=== PATIENT | male | born 1970 | race Two or more races ===

== ENCOUNTER 2016-10-30 19:42 | Inpatient (IN) | payer SELFPAY ==
[~2016-10-30] VITALS: Ht 165.1 cm; Wt 77.1 kg
[2016-10-30] MEDS ORDERED: levOFLOXacin PER PHARMACY. MC PRN (20:30)
[2016-10-30] MEDS ORDERED: KETOROLAC TROMETHAMINE 30 MG/ML INJ. IV ONE (20:30)
[2016-10-30] MEDS ORDERED: IV NORMAL SALINE 1000ML BAG 1,000 ML IV ONE (20:30)
[2016-10-30] MEDS ORDERED: fentaNYL PF VIAL 100 MCG/2 ML VIAL IV PRN (20:30)
--- NOTE | 2016-10-30 20:40 | PHYS DOC ---
Adult General Chief Complaint Chief Complaint: ABSCESS HPI HPI Patient is a 46 year old male who presents with buttock pain. The patient reports 4 day history of pain, swelling, warmth to left buttock, associated with pain with bowel movement. Reports sweats/chills, 1 episode of vomiting. Denies abdominal pain, rectal bleeding. No history of previous symptoms, no known PMHx. Last tetanus > 5 years. No PCP. Patient is Slovak-speaking, history obtained with assistance of language line nursing home social worker. Review of Systems Review of Systems Constitutional: Denies fever or chills HENT: Denies nasal congestion or sore throat Respiratory: Denies cough or shortness of breath Cardiovascular: Denies chest pain GI: Denies abdominal pain, nausea, vomiting, or diarrhea, reports rectal pain : Denies dysuria or hematuria Musculoskeletal: Denies back pain or joint pain Integument: Reports skin changes to buttock as above Neurologic: Denies headache Current Medications Current Medications Current Medications Medications (Trade) Dose Ordered Sig/Phoebe Start Time Stop Time Status Last Admin Dose Admin Fentanyl Citrate (Fentanyl 2ml Vial) 50 mcg PRN Q15MIN PRN 10/30/16 20:30 10/30/16 23:37 DC Ketorolac Tromethamine (Toradol) 30 mg 1X ONCE 10/30/16 20:30 10/30/16 20:32 DC 10/30/16 21:22 30 MG Levofloxacin/ Dextrose 100 ml @ 100 mls/hr Q24H 10/30/16 20:45 10/30/16 23:11 100 MLS/HR Levofloxacin/ Dextrose (Levaquin Per Pharmacy) 1 each PRN DAILY PRN 10/30/16 20:30 Sodium Chloride 1,000 ml @ 1,000 mls/hr 1X ONCE 10/30/16 20:30 10/30/16 21:29 DC 10/30/16 21:22 1,000 MLS/HR Vancomycin HCl (Vanco Per Pharmacy) 1 each PRN DAILY PRN 10/30/16 20:30 10/31/16 01:50 1 EACH Vancomycin HCl 2 gm/Sodium Chloride 500 ml @ 250 mls/hr 1X ONCE 10/30/16 20:45 10/30/16 22:44 DC 10/30/16 21:22 250 MLS/HR Allergies Allergies Allergies Coded Allergies Type Severity Reaction Last Updated Verified No Known Drug Allergies 10/30/16 No Physical Exam Physical Exam Constitutional: Well developed, well nourished, no acute distress, non-toxic appearance. HENT: Normocephalic, atraumatic, bilateral external ears normal, oropharynx moist, nose normal. Eyes: PERRLA, EOMI, conjunctiva normal, no discharge. Cardiovascular: RRR, no murmurs, no edema. Lungs & Thorax: LCTAB, no wheezing, no respiratory distress. Abdomen: soft, nontender, nondistended. Rectal: left buttock 6 cm x 4 cm area of erythema, warmth, induration extending toward anus, rectal tenderness/fluctuance on patient's left side which elicits tenderness Skin: Warm, dry, no erythema, no rash. Back: No tenderness. Extremities: No tenderness, no edema. Neurologic: Alert and oriented X 3, no focal deficits noted. Psychologic: Affect normal, judgement normal, mood normal. Current Patient Data Vital Signs Vital Signs Date Time Temp Pulse Resp B/P (MAP) Pulse Ox O2 Delivery O2 Flow Rate FiO2 10/30/16 20:13 100.0 101 18 135/80 (98) 98 Room Air 100.0 Lab Values Laboratory Tests Test 10/30/16 20:52 White Blood Count 10.5 x10^3/uL (4.0-11.0) Red Blood Count 4.71 x10^6/uL (4.30-5.70) Hemoglobin 15.0 g/dL (13.0-17.5) Hematocrit 42.2 % (39.0-53.0) Mean Corpuscular Volume 90 fL (79-100) Mean Corpuscular Hemoglobin 32 pg (25-35) Mean Corpuscular Hemoglobin Concent 36 g/dL (31-37) Red Cell Distribution Width 13.7 % (11.5-14.5) Platelet Count 135 x10^3/uL (140-400) L Neutrophils (%) (Auto) 68 % (31-73) Lymphocytes (%) (Auto) 21 % (24-48) L Monocytes (%) (Auto) 10 % (0-9) H Eosinophils (%) (Auto) 1 % (0-3) Basophils (%) (Auto) 0 % (0-3) Neutrophils # (Auto) 7.1 x10^3uL (1.8-7.7) Lymphocytes # (Auto) 2.2 x10^3/uL (1.0-4.8) Monocytes # (Auto) 1.1 x10^3/uL (0.0-1.1) Eosinophils # (Auto) 0.1 x10^3/uL (0.0-0.7) Basophils # (Auto) 0.0 x10^3/uL (0.0-0.2) Platelet Estimate Adequate (ADEQUATE) Large Platelets Present Laboratory Tests 10/30/16 20:52 EKG EKG [] Radiology/Procedures Radiology/Procedures [] Course & Med Decision Making Course & Med Decision Making Pertinent Labs and Imaging studies reviewed. (See chart for details) Patient presents with perirectal vs. rectal abscess. Not meeting SIRS criteria on arrival but low grade fever here & elevated heart rate are present. Gave IV fluids, pain medication, antibiotics (levaquin, flagyl, vancomycin). Anticipate he will require admission for operative intervention. Labs & CT pending at end of my shift. Will transfer care to Dr. Cooper to follow up results. Discussed with Dr. Adair who agrees to admit to inpatient status. Patient in stable condition at the end of my shift. [] Dragon Disclaimer Dragon Disclaimer This electronic medical record was generated, in whole or in part, using a voice recognition dictation system. Departure Departure Impression: Primary Impression: Perirectal abscess Disposition: ADMITTED INPATIENT Condition: STABLE Assessment/Plan Assessment/Plan 46-year-old male presenting to the emergency department with rectal abscess. She was transferred to my care to follow up on labs and CT results. Patient initial vital signs low-grade temperature with mild tachycardia. The patient was receiving vancomycin when he got a mild rash. Likely not allergic. I did give the patient Benadryl and we continued the medication. CT results showed left gluteal cleft abscess. CBC unremarkable. The patient was then admitted without requiring any acute interventions. VICK RIOS MD October 30, 2016 20:40 ANANYA COOPER MD October 31, 2016 03:14
[2016-10-30] MEDS ORDERED: VANCOMYCIN 2 GM in IV NORMAL SALINE 500ML BAG 500 ML IV ONE (20:45)
[2016-10-30] MEDS ORDERED: IOHEXOL 300 MG/ML 75 ML VIAL IV ONE (21:00)
[2016-10-30] MEDS ORDERED: CONTRAST GIVEN MC PRN (21:00)
[2016-10-30 21:04] LABS: BASO % 0 % (0-3); EOS % 1 % (0-3); HEMATOCRIT 42.2 % (39.0-53.0); LYMPH # 2.2 x10^3/uL (1.0-4.8); LYMPH % 21 % (24-48); MEAN CORPUSCULAR HEMOGLOBIN 32 pg (25-35); MEAN CORPUSCULAR HGB CONC 36 g/dL (31-37); MEAN CORPUSCULAR VOLUME 90 fL (79-100); MONO % 10 % (0-9); NEUT % 68 % (31-73); PLATELET COUNT 135 x10^3/uL (140-400); RED BLOOD COUNT 4.71 x10^6/uL (4.30-5.70); RED CELL DISTRIBUTION WIDTH 13.7 % (11.5-14.5); WHITE BLOOD COUNT 10.5 x10^3/uL (4.0-11.0)
[2016-10-30] MEDS ORDERED: MORPHINE SULFATE 4 MG/ML DISP.SYRIN. IV PRN (21:15)
[2016-10-30] MEDS ORDERED: ACETAMINOPHEN 325 MG TABLET. PO PRN (21:15)
[2016-10-30] MEDS ORDERED: ONDANSETRON PF 4 MG/2 ML VIAL. IV PRN (21:15)
[2016-10-30 21:55] LABS: PLT ESTIMATE ADEQUATE (ADEQUATE)
--- NOTE | 2016-10-30 22:17 | RAD ---
PROCEDURE CT study of pelvis with contrast HISTORY Injury to buttocks 4 days ago. Perirectal abscess. TECHNIQUE After IV infusion of 75 cc of Omnipaque 300, helical CT scanning of the pelvis was performed. Multiplanar 2D reconstructions were generated. One or more of the following individualized dose reduction techniques were utilized for this study: 1. Automated exposure control 2. Adjustment of the mA and/or kV according to patient size 3. Use of iterative reconstruction technique COMPARISON None available. FINDINGS There is a hypodense area with peripheral rim enhancement involving the lower left gluteal region just deep to the gluteal cleft which measures 4.2 centimeters in AP dimension and 4.4 centimeters in vertical dimension and 1.8 centimeters in transverse dimension. There is adjacent inflammation and skin thickening. This is consistent with a perirectal or perianal abscess. Another possibility would include a hematoma given the history of trauma. No free intraperitoneal air or free fluid is seen. A reactive lymph node is seen in the left inguinal area measuring 22 millimeters. No osteolytic process is seen. IMPRESSION Findings are consistent with an enhancing abscess or hematoma of the lower left gluteal region as discussed above. Electronically signed by: Frandy Mg MD (October 30, 2016 22:16:22)
[2016-10-30 22:25] LABS: CALCIUM 8.6 mg/dL (8.5-10.1); CREATININE 0.7 mg/dL (0.7-1.3); GFR 120.9; POTASSIUM 3.3 mmol/L (3.5-5.1)
[2016-10-30] MEDS ORDERED: diphenhydrAMINE 50 MG/ML VIAL IVP ONE (22:30)
--- NOTE | 2016-10-30 22:37 | ACF ---
Admission Forms Criteria Admission Criteria Met?: Pending ELBERT MANCERA October 30, 2016 22:37 ANANYA FIORE MD Nov 20, 2016 06:46
[2016-10-30 22:40] VITALS: BP 115/64
[2016-10-30] MEDS: IV NORMAL SALINE 1000ML BAG 1,000 ML IV SCH (22:48)
[2016-10-30] MEDS ORDERED: oxyCODONE IR 5 MG TABLET PO PRN (23:30)
[2016-10-31] VITALS (11 sets, daily range): BP systolic 95–134; BP diastolic 60–96
--- NOTE | 2016-10-31 00:32 | HP ---
ADMIT DATE: 10/30/2016 CHIEF COMPLAINT: Perirectal abscess. HISTORY OF PRESENT ILLNESS: The patient is a 46-year-old gentleman who presented with 4-day history of buttock pain and swelling in the left buttock. He relates that this is associated with worsening pain with bowel movements. Also had fevers and chills and a single episode of vomiting today. Denies any bleeding from this. Never had symptoms like this in the past. In the Emergency Room, a tract was noted perirectally with leakage. The specimen was sent for culture. PAST MEDICAL HISTORY: Negative. FAMILY HISTORY: Noncontributory. SOCIAL HISTORY: . No toxic habits. ALLERGIES: No known drug allergies. HOME MEDICATIONS: None. REVIEW OF SYSTEMS: Positive for rectal pain as per HPI. PHYSICAL EXAMINATION: VITAL SIGNS: From today show a blood pressure of 110/83, heart rate of 90, respiratory rate at 19, temperature of 100 even in the Emergency Room. GENERAL: This is a well-nourished, well-developed 46-year-old gentleman, lethargic after medications, in no acute distress. HEENT: Shows no scleral icterus. NECK: Supple. LUNGS: Clear. HEART: Has regular rate and rhythm. ABDOMEN: Has positive bowel sounds, soft, nontender. RECTAL: Perirectal exam reveals left buttock cellulitis with erythema, induration of approximately 12 x 8 cm as well as a 2 mm tract anteriorly to the anus. EXTREMITIES: Show no edema. LABORATORY DATA: CBC with a WBC of 10.5, hemoglobin 15, platelets of 135. Chemistries: BUN and creatinine of 8 and 0.7, potassium at 3.3. IMAGING: CT of the pelvis reveals findings consistent with enhancing abscess or hematoma of the lower left gluteal region. ASSESSMENT AND PLAN: The patient is a 46-year-old gentleman with buttock abscess. Surgery has been consulted. In the meantime, he will continue on broad-spectrum antibiotic. Suspect he will need incision and draining of the buttock cellulitis. I am a bit concerned that there may be actually a tract to the central perineum. This may complicate further treatment a little. We will await surgical input. Pain regimen will include morphine 2 mg q. 2, also has oxycodone 5-10 mg available. VIVIANA ORDOÑEZ MD DR: HEIDI/bonifacio JOB#: [id number] / [id number] ASHLEIGH
[2016-10-31] MEDS: VANCOMYCIN PER PHARMACY MC PRN ×3 (01:50→23:49)
[2016-10-31] MEDS: IV NORMAL SALINE 1000ML BAG 1,000 ML IV SCH ×2 (05:11→13:11)
[2016-10-31] MEDS: VANCOMYCIN 1.25 GM in IV NORMAL SALINE 250ML 250 ML IV SCH ×3 (05:33→22:05)
[2016-10-31 05:39] LABS: BASO % 0 % (0-3); EOS % 2 % (0-3); HEMOGLOBIN 14.3 g/dL (13.0-17.5); LYMPH % 23 % (24-48); MEAN CORPUSCULAR HEMOGLOBIN 31 pg (25-35); MEAN CORPUSCULAR HGB CONC 34 g/dL (31-37); MEAN CORPUSCULAR VOLUME 91 fL (79-100); MONO % 14 % (0-9); NEUT % 61 % (31-73); PLATELET COUNT 120 x10^3/uL (140-400); WHITE BLOOD COUNT 8.9 x10^3/uL (4.0-11.0)
[2016-10-31 06:07] LABS: CALCIUM 8.7 mg/dL (8.5-10.1); CREATININE 0.6 mg/dL (0.7-1.3); GFR 144.4; POTASSIUM 3.5 mmol/L (3.5-5.1)
[2016-10-31] MEDS: MORPHINE SULFATE 2 MG/ML DISP.SYRIN. IV PRN ×4 (06:58→22:59)
--- NOTE | 2016-10-31 08:06 | PDOC2 ---
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 No drainage(however noted to have a small amount of drainage in ER last night, cultures sent). No constipation or diarrhea, pain is worse with bowel function. No history of rectal abscesses. Nursing staff provided interpretation Past Medical History Past Medical History no pertinent hx Past Surgical History Past Surgical History: Other (oral surgery) Family History Family History: Other (noncontributory to current illness ) Social History No ALCOHOL: none Drugs: None Lives: with Family Current Problem List Problem List Problems Medical Problems: (1) Perirectal abscess Status: Acute Current Medications Current Medications Current Medications Sodium Chloride 1,000 ml @ 1,000 mls/hr 1X ONCE IV Last administered on 21:22; Start 10/30/16 at 20:30; Stop 10/30/16 at 21:29; Status DC Fentanyl Citrate (Fentanyl 2ml Vial) 50 mcg PRN Q15MIN PRN IV PAIN GREATER THAN 3/10; Start 10/30/16 at 20:30; Stop 10/30/16 at 23:37; Status DC Ketorolac Tromethamine (Toradol) 30 mg 1X ONCE IV Last administered on 21:22; Start 10/30/16 at 20:30; Stop 10/30/16 at 20:32; Status DC Levofloxacin/ Dextrose (Levaquin Per Pharmacy) 1 each PRN DAILY PRN MC SEE COMMENTS; Start 10/30/16 at 20:30 Vancomycin HCl (Vanco Per Pharmacy) 1 each PRN DAILY PRN MC SEE COMMENTS Last administered on 10/31/16 01:50; Start 10/30/16 at 20:30 Metronidazole 100 ml @ 100 mls/hr Q8HRS IV Last administered on 10/31/16 05: 34; Start 10/30/16 at 22:00 Vancomycin HCl 2 gm/Sodium Chloride 500 ml @ 250 mls/hr 1X ONCE IV Last administered on 10/30/16 21:22; Start 10/30/16 at 20:45; Stop 10/30/16 at 22:44 ; Status DC Levofloxacin/ Dextrose 100 ml @ 100 mls/hr Q24H IV Last administered on 23:11; Start 10/30/16 at 20:45 Iohexol (Omnipaque 300 Mg/ml) 75 ml 1X ONCE IV Last administered on 10/30/16 21:00; Start 10/30/16 at 21:00; Stop 10/30/16 at 21:01; Status DC Info (Do NOT chart on this entry -- for MONITORING) 1 each PRN DAILY PRN MC SEE COMMENTS; Start 10/30/16 at 21:00; Stop 11/01/16 at 20:59 Ondansetron HCl (Zofran) 4 mg PRN Q8HRS PRN IV NAUSEA/VOMITING; Start 10/30/16 at 21:15; Stop 10/31/16 at 21:14 Morphine Sulfate 4 mg PRN Q2HR PRN IV SEVERE PAIN; Start 10/30/16 at 21:15; Stop 10/30/16 at 23:37; Status DC Sodium Chloride 1,000 ml @ 125 mls/hr Q8H IV Last administered on 10/30/16 22 :48; Start 10/30/16 at 21:11; Stop 10/31/16 at 21:10 Acetaminophen (Tylenol) 650 mg PRN Q4HRS PRN PO FEVER; Start 10/30/16 at 21:15 ; Stop 10/31/16 at 21:14 Diphenhydramine HCl (Benadryl) 25 mg 1X ONCE IVP Last administered on 22:12; Start 10/30/16 at 22:30; Stop 10/30/16 at 22:31; Status DC Morphine Sulfate 2 mg PRN Q2HR PRN IV SEVERE PAIN Last administered on 06:58; Start 10/30/16 at 23:30 Oxycodone HCl (Roxicodone) 5 mg PRN Q6HRS PRN PO MOERATE PAIN; Start 10/30/16 at 23:30 Oxycodone HCl (Roxicodone) 10 mg PRN Q6HRS PRN PO SEVERE PAIN; Start 10/30/16 at 23:45 Vancomycin HCl 1.25 gm/Sodium Chloride 250 ml @ 167 mls/hr Q8HRS IV Last administered on 10/31/16t 05:33; Start 10/31/16 at 06:00 Vancomycin HCl 1 each 1X ONCE MC ; Start 10/31/16 at 21:30; Stop 10/31/16 at 21 :31 Allergies Allergies: Coded Allergies: No Known Drug Allergies (Unverified , 10/30/16) ROS General: YES: Chills, Other (+ fevers ) PSYCHOLOGICAL ROS: No: Anxiety, Depression Eyes: No Blurry vision, No Double vision HEENT: No: Heacaches, Sore Throat Hematological and Lymphatic: No: Bleeding Problems, Blood Clots Respiratory: No: Cough, Shortness of breath Cardiovascular: No Chest Pain, No Palpitations Gastrointestinal: Yes Nausea, No Abdominal Pain Genitourinary: YES Dysuria, No Hematuria Musculoskeletal: Yes Muscle Pain, No Joint Pain Neurological: No Impaired Coord/balance, No Numbness/Tingling Skin: Yes Other (see hpi) Physical Exam General: Alert, Oriented X3, Cooperative, No acute distress HEENT: PERRLA, Mucous membr. moist/pink Lungs: Clear to auscultation, Normal air movement Heart: Regular rate, Normal S1, Normal S2, No murmurs Abdomen: Soft, No tenderness Extremities: No clubbing, No cyanosis Skin: Other (left perirectal area with induration, erythema, tenderness ) Vitals VITALS Vital Signs Date Time Temp Pulse Resp B/P (MAP) Pulse Ox O2 Delivery O2 Flow Rate FiO2 10/31/16 06:58 Room Air 10/31/16 03:12 98.2 85 18 95/60 (72) 98 98.2 Labs Labs Laboratory Tests Test 10/30/16 20:52 10/30/16 22:00 10/31/16 05:05 White Blood Count 10.5 x10^3/uL (4.0-11.0) 8.9 x10^3/uL (4.0-11.0) Red Blood Count 4.71 x10^6/uL (4.30-5.70) 4.60 x10^6/uL (4.30-5.70) Hemoglobin 15.0 g/dL (13.0-17.5) 14.3 g/dL (13.0-17.5) Hematocrit 42.2 % (39.0-53.0) 42.0 % (39.0-53.0) Mean Corpuscular Volume 90 fL (79-100) 91 fL (79-100) Mean Corpuscular Hemoglobin 32 pg (25-35) 31 pg (25-35) Mean Corpuscular Hemoglobin Concent 36 g/dL (31-37) 34 g/dL (31-37) Red Cell Distribution Width 13.7 % (11.5-14.5) 14.0 % (11.5-14.5) Platelet Count 135 x10^3/uL (140-400) 120 x10^3/uL (140-400) Neutrophils (%) (Auto) 68 % (31-73) 61 % (31-73) Lymphocytes (%) (Auto) 21 % (24-48) 23 % (24-48) Monocytes (%) (Auto) 10 % (0-9) 14 % (0-9) Eosinophils (%) (Auto) 1 % (0-3) 2 % (0-3) Basophils (%) (Auto) 0 % (0-3) 0 % (0-3) Neutrophils # (Auto) 7.1 x10^3uL (1.8-7.7) 5.4 x10^3uL (1.8-7.7) Lymphocytes # (Auto) 2.2 x10^3/uL (1.0-4.8) 2.0 x10^3/uL (1.0-4.8) Monocytes # (Auto) 1.1 x10^3/uL (0.0-1.1) 1.3 x10^3/uL (0.0-1.1) Eosinophils # (Auto) 0.1 x10^3/uL (0.0-0.7) 0.2 x10^3/uL (0.0-0.7) Basophils # (Auto) 0.0 x10^3/uL (0.0-0.2) 0.0 x10^3/uL (0.0-0.2) Platelet Estimate Adequate (ADEQUATE) Large Platelets Present Sodium Level 139 mmol/L (136-145) 143 mmol/L (136-145) Potassium Level 3.3 mmol/L (3.5-5.1) 3.5 mmol/L (3.5-5.1) Chloride Level 104 mmol/L (98-107) 108 mmol/L (98-107) Carbon Dioxide Level 25 mmol/L (21-32) 23 mmol/L (21-32) Anion Gap 10 (6-14) 12 (6-14) Blood Urea Nitrogen 8 mg/dL (8-26) 8 mg/dL (8-26) Creatinine 0.7 mg/dL (0.7-1.3) 0.6 mg/dL (0.7-1.3) Estimated GFR (Cockcroft-Gault) 120.9 144.4 Glucose Level 112 mg/dL (70-99) 109 mg/dL (70-99) Calcium Level 8.6 mg/dL (8.5-10.1) 8.7 mg/dL (8.5-10.1) Laboratory Tests Test 10/30/16 20:52 10/30/16 22:00 10/31/16 05:05 White Blood Count 10.5 x10^3/uL (4.0-11.0) 8.9 x10^3/uL (4.0-11.0) Red Blood Count 4.71 x10^6/uL (4.30-5.70) 4.60 x10^6/uL (4.30-5.70) Hemoglobin 15.0 g/dL (13.0-17.5) 14.3 g/dL (13.0-17.5) Hematocrit 42.2 % (39.0-53.0) 42.0 % (39.0-53.0) Mean Corpuscular Volume 90 fL (79-100) 91 fL (79-100) Mean Corpuscular Hemoglobin 32 pg (25-35) 31 pg (25-35) Mean Corpuscular Hemoglobin Concent 36 g/dL (31-37) 34 g/dL (31-37) Red Cell Distribution Width 13.7 % (11.5-14.5) 14.0 % (11.5-14.5) Platelet Count 135 x10^3/uL (140-400) 120 x10^3/uL (140-400) Neutrophils (%) (Auto) 68 % (31-73) 61 % (31-73) Lymphocytes (%) (Auto) 21 % (24-48) 23 % (24-48) Monocytes (%) (Auto) 10 % (0-9) 14 % (0-9) Eosinophils (%) (Auto) 1 % (0-3) 2 % (0-3) Basophils (%) (Auto) 0 % (0-3) 0 % (0-3) Neutrophils # (Auto) 7.1 x10^3uL (1.8-7.7) 5.4 x10^3uL (1.8-7.7) Lymphocytes # (Auto) 2.2 x10^3/uL (1.0-4.8) 2.0 x10^3/uL (1.0-4.8) Monocytes # (Auto) 1.1 x10^3/uL (0.0-1.1) 1.3 x10^3/uL (0.0-1.1) Eosinophils # (Auto) 0.1 x10^3/uL (0.0-0.7) 0.2 x10^3/uL (0.0-0.7) Basophils # (Auto) 0.0 x10^3/uL (0.0-0.2) 0.0 x10^3/uL (0.0-0.2) Platelet Estimate Adequate (ADEQUATE) Large Platelets Present Sodium Level 139 mmol/L (136-145) 143 mmol/L (136-145) Potassium Level 3.3 mmol/L (3.5-5.1) 3.5 mmol/L (3.5-5.1) Chloride Level 104 mmol/L (98-107) 108 mmol/L (98-107) Carbon Dioxide Level 25 mmol/L (21-32) 23 mmol/L (21-32) Anion Gap 10 (6-14) 12 (6-14) Blood Urea Nitrogen 8 mg/dL (8-26) 8 mg/dL (8-26) Creatinine 0.7 mg/dL (0.7-1.3) 0.6 mg/dL (0.7-1.3) Estimated GFR (Cockcroft-Gault) 120.9 144.4 Glucose Level 112 mg/dL (70-99) 109 mg/dL (70-99) Calcium Level 8.6 mg/dL (8.5-10.1) 8.7 mg/dL (8.5-10.1) Images Images Perirectal abscess, left continue abx plan I&D today AYSHA SULLIVAN MD 10/31/16 1338: CONSULT Allergies Allergies: Coded Allergies: No Known Drug Allergies (Unverified , 10/30/16) Assessment/Plan Assessment/Plan Pt seen and examined. Agree with Ms. Whittaker's note Pt with c/o left perianal pain induration and TTP in the area on physical exam TO OR for i and D D/w pt whom agrees to proceed. Thanks for consult! ANALIA WHITTAKER APRN October 31, 2016 08:06 AYSHA SULLIVAN MD October 31, 2016 13:38
--- NOTE | 2016-10-31 13:11 | PDOC ---
PROGRESS NOTES Chief Complaint Chief Complaint (uday)rectal abscess ASSESSMENT AND PLAN: 1. Abscess: I&D by surg later today. cont IV abx (lavaquin, flagyl, vanco) for now. care home plan d/w pt via pulvi mixer operator. 2. Thrombocytopenia: mild, poss 2/2 infect. monitor. 3. Prophylaxis: lovenox post I&D History of Present Illness History of Present Illness pain unchanges since last nite; controlled with meds Vitals Vitals Vital Signs Date Time Temp Pulse Resp B/P (MAP) Pulse Ox O2 Delivery O2 Flow Rate FiO2 10/31/16 11:00 99.1 81 20 117/74 (88) 96 Room Air 99.1 Physical Exam General: Alert, Oriented X3, Cooperative, No acute distress Heart: Regular rate, No murmurs Abdomen: Soft, No tenderness Extremities: No clubbing, No cyanosis Skin: Other (left perirectal area with induration, erythema, tenderness ) Labs LABS Laboratory Tests Test 10/30/16 20:52 10/30/16 22:00 10/31/16 05:05 White Blood Count 10.5 x10^3/uL (4.0-11.0) 8.9 x10^3/uL (4.0-11.0) Red Blood Count 4.71 x10^6/uL (4.30-5.70) 4.60 x10^6/uL (4.30-5.70) Hemoglobin 15.0 g/dL (13.0-17.5) 14.3 g/dL (13.0-17.5) Hematocrit 42.2 % (39.0-53.0) 42.0 % (39.0-53.0) Mean Corpuscular Volume 90 fL (79-100) 91 fL (79-100) Mean Corpuscular Hemoglobin 32 pg (25-35) 31 pg (25-35) Mean Corpuscular Hemoglobin Concent 36 g/dL (31-37) 34 g/dL (31-37) Red Cell Distribution Width 13.7 % (11.5-14.5) 14.0 % (11.5-14.5) Platelet Count 135 x10^3/uL (140-400) 120 x10^3/uL (140-400) Neutrophils (%) (Auto) 68 % (31-73) 61 % (31-73) Lymphocytes (%) (Auto) 21 % (24-48) 23 % (24-48) Monocytes (%) (Auto) 10 % (0-9) 14 % (0-9) Eosinophils (%) (Auto) 1 % (0-3) 2 % (0-3) Basophils (%) (Auto) 0 % (0-3) 0 % (0-3) Neutrophils # (Auto) 7.1 x10^3uL (1.8-7.7) 5.4 x10^3uL (1.8-7.7) Lymphocytes # (Auto) 2.2 x10^3/uL (1.0-4.8) 2.0 x10^3/uL (1.0-4.8) Monocytes # (Auto) 1.1 x10^3/uL (0.0-1.1) 1.3 x10^3/uL (0.0-1.1) Eosinophils # (Auto) 0.1 x10^3/uL (0.0-0.7) 0.2 x10^3/uL (0.0-0.7) Basophils # (Auto) 0.0 x10^3/uL (0.0-0.2) 0.0 x10^3/uL (0.0-0.2) Platelet Estimate Adequate (ADEQUATE) Large Platelets Present Sodium Level 139 mmol/L (136-145) 143 mmol/L (136-145) Potassium Level 3.3 mmol/L (3.5-5.1) 3.5 mmol/L (3.5-5.1) Chloride Level 104 mmol/L (98-107) 108 mmol/L (98-107) Carbon Dioxide Level 25 mmol/L (21-32) 23 mmol/L (21-32) Anion Gap 10 (6-14) 12 (6-14) Blood Urea Nitrogen 8 mg/dL (8-26) 8 mg/dL (8-26) Creatinine 0.7 mg/dL (0.7-1.3) 0.6 mg/dL (0.7-1.3) Estimated GFR (Cockcroft-Gault) 120.9 144.4 Glucose Level 112 mg/dL (70-99) 109 mg/dL (70-99) Calcium Level 8.6 mg/dL (8.5-10.1) 8.7 mg/dL (8.5-10.1) VIVIANA ORDOÑEZ MD October 31, 2016 13:11
[2016-10-31] MEDS ORDERED: IV RINGERS,LACTATED 1000ML 1,000 ML IV SCH (13:26)
[2016-10-31] MEDS ORDERED: HYDROmorphone 2 MG/ML VIAL IV PRN (13:30)
[2016-10-31] MEDS ORDERED: LIDOCAINE 1% 1 ML SYRINGE. ID PRN (13:30)
[2016-10-31] MEDS ORDERED: fentaNYL PF VIAL 100 MCG/2 ML VIAL IV PRN (13:30)
[2016-10-31] MEDS ORDERED: PROCHLORPERAZINE 10 MG/2 ML VIAL. IV PRN (13:30)
[2016-10-31] MEDS ORDERED: MORPHINE SULFATE 2 MG/ML DISP.SYRIN. IV PRN ×2 (13:30→16:45)
[2016-10-31] MEDS ORDERED: PROPOFOL 50 ML IV ONE (15:22)
[2016-10-31] MEDS ORDERED: DEXAMETHASONE SOD PHOS 20 MG/5 ML VIAL. ONE (15:22)
[2016-10-31] MEDS ORDERED: ONDANSETRON PF 4 MG/2 ML VIAL. ONE (15:23)
[2016-10-31] MEDS ORDERED: fentaNYL PF VIAL 250 MCG/5 ML VIAL ONE (15:23)
[2016-10-31] MEDS ORDERED: LIDOCAINE 2% PF Vial for OR 5 ML VIAL. ONE (15:23)
[2016-10-31] MEDS ORDERED: BUPIVAC MPF-EPI 0.5%-1:200000 30 ML VIAL. ONE (16:23)
[2016-10-31] MEDS: IV RINGERS,LACTATED 1000ML 1,000 ML IV SCH (16:41)
[2016-10-31] MEDS ORDERED: 0.9 % SODIUM CHLORIDE 10 ML DISP.SYRIN. IV PRN (16:45)
[2016-10-31] MEDS ORDERED: KETOROLAC TROMETHAMINE 30 MG/ML INJ. IV PRN (16:45)
--- NOTE | 2016-10-31 16:47 | PDOC ---
BRIEF OPERATIVE NOTE Pre-Op Diagnosis left perianal abscess Post-Op Diagnosis same Procedure Performed i and d Surgeon Deacon Anesthesia Type: General Blood Loss min Complications none Additional Remarks [id number] AYSHA SULLIVAN MD October 31, 2016 16:47
[2016-10-31] MEDS: fentaNYL PF VIAL 100 MCG/2 ML VIAL IV PRN ×2 (17:08→17:24)
[2016-10-31] MEDS: SENNOSIDES/DOCUSATE 8.6/50MG TABLET. PO SCH (20:55)
[2016-10-31] MEDS: oxyCODONE IR 5 MG TABLET PO PRN (20:56)
--- NOTE | 2016-10-31 21:52 | OP ---
DATE OF SURGERY: 10/31/2016 PREOPERATIVE DIAGNOSIS: Left perirectal abscess. POSTOPERATIVE DIAGNOSIS: Left perirectal abscess. PROCEDURE: Incision and drainage of the left perirectal abscess. SURGEON: Dr. Sullivan. ESTIMATED BLOOD LOSS: Minimal. COMPLICATIONS: None. INDICATION: This is a 46-year-old male who presents with complaints of left perianal pain. Physical examination demonstrates an abscess by palpation, Therefore, patient is best be served by incision and drainage of this. The patient was informed of the risks, benefits, and alternatives to procedure. Risks, including but not limited to, bleeding, infection, damage to the surrounding structures, risk of anesthesia. He appears to understand and agrees to proceed. PROCEDURE: After obtaining informed consent, the patient was taken to the operating room, induced under general endotracheal anesthetic, the patient was placed in high lithotomy position and prepped and draped in usual fashion the rectal anal area. Digital examination demonstrates no obvious masses. There is an indurated fluctuant area on the left anal area. Some purulent material was draining medially, but fairly minimal. This area was opened up, and additional pus was drained. Cultures were obtained. A counter incision was made over the more fluctuant lateral portion of this and a large amount of purulent material was evacuated. This was suctioned out aggressively and Antionette drain was placed through this and secured in place with 3-0 nylon stitch. The wound was packed then with iodoform gauze. Sterile dressing was placed over the wound. The patient tolerated the procedure well and he was discharged to recovery room in stable condition. All counts were correct. There were no immediate complications. AYSHA SULLIVAN MD DR: JEFF/nts JOB#: [id number] / [id number] VIVIANA Duncan MD [facility]
[2016-10-31] MEDS: HYDROcodone/APAP 5/325MG 1 TAB TABLET PO PRN (22:59)
[2016-11-01] MEDS: IV RINGERS,LACTATED 1000ML 1,000 ML IV SCH ×3 (02:41→22:28)
[2016-11-01 03:14] VITALS: BP 110/66
[2016-11-01] MEDS: VANCOMYCIN 1.25 GM in IV NORMAL SALINE 250ML 250 ML IV SCH ×3 (06:32→22:27)
[2016-11-01 07:00] VITALS: BP 123/81
[2016-11-01] MEDS: oxyCODONE IR 5 MG TABLET PO PRN ×2 (09:25→19:16)
[2016-11-01] MEDS: SENNOSIDES/DOCUSATE 8.6/50MG TABLET. PO SCH ×2 (09:25→20:30)
[2016-11-01 11:00] VITALS: BP 134/72
--- NOTE | 2016-11-01 11:22 | PDOC ---
SURGICAL PROGRESS NOTE Subjective tolerating diet feeling better Vital Signs Vital Signs Date Time Temp Pulse Resp B/P (MAP) Pulse Ox O2 Delivery O2 Flow Rate FiO2 11/01/16 09:25 18 Room Air 11/01/16 07:00 97.8 80 123/81 (95) 98 97.8 10/31/16 17:40 2.0 I&O Intake and Output 11/01/16 07:00 Intake Total 3026 ml Output Total 3255 ml Balance -229 ml Intake Oral 960 ml IV Total 2066 ml Output Urine Total 3250 ml Estimated Blood Loss 5 ml # Voids 2 General: Alert, Oriented X3, Cooperative, No acute distress Skin: Other (perirectal wound wtih packing drain, less induration/erythema ) Labs Laboratory Tests Test 10/30/16 20:52 10/30/16 22:00 10/31/16 05:05 10/31/16 21:15 White Blood Count 10.5 x10^3/uL (4.0-11.0) 8.9 x10^3/uL (4.0-11.0) Red Blood Count 4.71 x10^6/uL (4.30-5.70) 4.60 x10^6/uL (4.30-5.70) Hemoglobin 15.0 g/dL (13.0-17.5) 14.3 g/dL (13.0-17.5) Hematocrit 42.2 % (39.0-53.0) 42.0 % (39.0-53.0) Mean Corpuscular Volume 90 fL (79-100) 91 fL (79-100) Mean Corpuscular Hemoglobin 32 pg (25-35) 31 pg (25-35) Mean Corpuscular Hemoglobin Concent 36 g/dL (31-37) 34 g/dL (31-37) Red Cell Distribution Width 13.7 % (11.5-14.5) 14.0 % (11.5-14.5) Platelet Count 135 x10^3/uL (140-400) 120 x10^3/uL (140-400) Neutrophils (%) (Auto) 68 % (31-73) 61 % (31-73) Lymphocytes (%) (Auto) 21 % (24-48) 23 % (24-48) Monocytes (%) (Auto) 10 % (0-9) 14 % (0-9) Eosinophils (%) (Auto) 1 % (0-3) 2 % (0-3) Basophils (%) (Auto) 0 % (0-3) 0 % (0-3) Neutrophils # (Auto) 7.1 x10^3uL (1.8-7.7) 5.4 x10^3uL (1.8-7.7) Lymphocytes # (Auto) 2.2 x10^3/uL (1.0-4.8) 2.0 x10^3/uL (1.0-4.8) Monocytes # (Auto) 1.1 x10^3/uL (0.0-1.1) 1.3 x10^3/uL (0.0-1.1) Eosinophils # (Auto) 0.1 x10^3/uL (0.0-0.7) 0.2 x10^3/uL (0.0-0.7) Basophils # (Auto) 0.0 x10^3/uL (0.0-0.2) 0.0 x10^3/uL (0.0-0.2) Platelet Estimate Adequate (ADEQUATE) Large Platelets Present Sodium Level 139 mmol/L (136-145) 143 mmol/L (136-145) Potassium Level 3.3 mmol/L (3.5-5.1) 3.5 mmol/L (3.5-5.1) Chloride Level 104 mmol/L (98-107) 108 mmol/L (98-107) Carbon Dioxide Level 25 mmol/L (21-32) 23 mmol/L (21-32) Anion Gap 10 (6-14) 12 (6-14) Blood Urea Nitrogen 8 mg/dL (8-26) 8 mg/dL (8-26) Creatinine 0.7 mg/dL (0.7-1.3) 0.6 mg/dL (0.7-1.3) Estimated GFR (Cockcroft-Gault) 120.9 144.4 Glucose Level 112 mg/dL (70-99) 109 mg/dL (70-99) Calcium Level 8.6 mg/dL (8.5-10.1) 8.7 mg/dL (8.5-10.1) Vancomycin Level Trough 13.8 mcg/mL (10.0-20.0) Vancomycin Last Dose Date 10/31/16 Vancomycin Last Dose Time 1400 Laboratory Tests Test 10/31/16 21:15 Vancomycin Level Trough 13.8 mcg/mL (10.0-20.0) Vancomycin Last Dose Date 10/31/16 Vancomycin Last Dose Time 1400 Problem List Problems Medical Problems: (1) Perirectal abscess Status: Acute Assessment/Plan s/p I&D leave packing in place today drain, abx 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
--- NOTE | 2016-11-01 12:09 | PDOC ---
PROGRESS NOTES Chief Complaint Chief Complaint uday-rectal abscess 1. cellulitis and Abscess: I&D by surg yesterday, cont IV abx (lavaquin, flagyl, vanco) for now. 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 2. Thrombocytopenia: mild, monitor. 3. Prophylaxis: lovenox post I&D History of Present Illness History of Present Illness pain better feels OK asking about when he can discharge, Vitals Vitals Vital Signs Date Time Temp Pulse Resp B/P (MAP) Pulse Ox O2 Delivery O2 Flow Rate FiO2 11/01/16 11:00 98.4 73 20 134/72 (92) 96 Room Air 98.4 10/31/16 17:40 2.0 Physical Exam General: Alert, Oriented X3, Cooperative, No acute distress Heart: Regular rate, No murmurs Abdomen: Soft, No tenderness Extremities: No clubbing, No cyanosis Skin: Other (perirectal wound wtih packing drain, less induration/erythema ) Labs LABS Laboratory Tests Test 10/31/16 21:15 Vancomycin Level Trough 13.8 mcg/mL (10.0-20.0) Vancomycin Last Dose Date 10/31/16 Vancomycin Last Dose Time 1400 Review of Systems Review of Systems no n.v.d some pain, better Assessment and Plan Assessmemt and Plan Problems Medical Problems: (1) Perirectal abscess Status: Acute Problems: Comment Review of Relevant I have reviewed the following items hunter (where applicable) has been applied. Labs Laboratory Tests Test 10/30/16 20:52 10/30/16 22:00 10/31/16 05:05 10/31/16 21:15 White Blood Count 10.5 x10^3/uL (4.0-11.0) 8.9 x10^3/uL (4.0-11.0) Red Blood Count 4.71 x10^6/uL (4.30-5.70) 4.60 x10^6/uL (4.30-5.70) Hemoglobin 15.0 g/dL (13.0-17.5) 14.3 g/dL (13.0-17.5) Hematocrit 42.2 % (39.0-53.0) 42.0 % (39.0-53.0) Mean Corpuscular Volume 90 fL (79-100) 91 fL (79-100) Mean Corpuscular Hemoglobin 32 pg (25-35) 31 pg (25-35) Mean Corpuscular Hemoglobin Concent 36 g/dL (31-37) 34 g/dL (31-37) Red Cell Distribution Width 13.7 % (11.5-14.5) 14.0 % (11.5-14.5) Platelet Count 135 x10^3/uL (140-400) 120 x10^3/uL (140-400) Neutrophils (%) (Auto) 68 % (31-73) 61 % (31-73) Lymphocytes (%) (Auto) 21 % (24-48) 23 % (24-48) Monocytes (%) (Auto) 10 % (0-9) 14 % (0-9) Eosinophils (%) (Auto) 1 % (0-3) 2 % (0-3) Basophils (%) (Auto) 0 % (0-3) 0 % (0-3) Neutrophils # (Auto) 7.1 x10^3uL (1.8-7.7) 5.4 x10^3uL (1.8-7.7) Lymphocytes # (Auto) 2.2 x10^3/uL (1.0-4.8) 2.0 x10^3/uL (1.0-4.8) Monocytes # (Auto) 1.1 x10^3/uL (0.0-1.1) 1.3 x10^3/uL (0.0-1.1) Eosinophils # (Auto) 0.1 x10^3/uL (0.0-0.7) 0.2 x10^3/uL (0.0-0.7) Basophils # (Auto) 0.0 x10^3/uL (0.0-0.2) 0.0 x10^3/uL (0.0-0.2) Platelet Estimate Adequate (ADEQUATE) Large Platelets Present Sodium Level 139 mmol/L (136-145) 143 mmol/L (136-145) Potassium Level 3.3 mmol/L (3.5-5.1) 3.5 mmol/L (3.5-5.1) Chloride Level 104 mmol/L (98-107) 108 mmol/L (98-107) Carbon Dioxide Level 25 mmol/L (21-32) 23 mmol/L (21-32) Anion Gap 10 (6-14) 12 (6-14) Blood Urea Nitrogen 8 mg/dL (8-26) 8 mg/dL (8-26) Creatinine 0.7 mg/dL (0.7-1.3) 0.6 mg/dL (0.7-1.3) Estimated GFR (Cockcroft-Gault) 120.9 144.4 Glucose Level 112 mg/dL (70-99) 109 mg/dL (70-99) Calcium Level 8.6 mg/dL (8.5-10.1) 8.7 mg/dL (8.5-10.1) Vancomycin Level Trough 13.8 mcg/mL (10.0-20.0) Vancomycin Last Dose Date 10/31/16 Vancomycin Last Dose Time 1400 Laboratory Tests Test 10/31/16 21:15 Vancomycin Level Trough 13.8 mcg/mL (10.0-20.0) Vancomycin Last Dose Date 10/31/16 Vancomycin Last Dose Time 1400 Microbiology 10/31/16 Gram Stain - Final, Complete Medications Current Medications Sodium Chloride 1,000 ml @ 1,000 mls/hr 1X ONCE IV Last administered on 21:22; Start 10/30/16 at 20:30; Stop 10/30/16 at 21:29; Status DC Fentanyl Citrate (Fentanyl 2ml Vial) 50 mcg PRN Q15MIN PRN IV PAIN GREATER THAN 3/10; Start 10/30/16 at 20:30; Stop 10/30/16 at 23:37; Status DC Ketorolac Tromethamine (Toradol) 30 mg 1X ONCE IV Last administered on 21:22; Start 10/30/16 at 20:30; Stop 10/30/16 at 20:32; Status DC Levofloxacin/ Dextrose (Levaquin Per Pharmacy) 1 each PRN DAILY PRN MC SEE COMMENTS; Start 10/30/16 at 20:30 Vancomycin HCl (Vanco Per Pharmacy) 1 each PRN DAILY PRN MC SEE COMMENTS Last administered on 10/31/16 23:49; Start 10/30/16 at 20:30 Metronidazole 100 ml @ 100 mls/hr Q8HRS IV Last administered on 11/01/16 06: 32; Start 10/30/16 at 22:00 Vancomycin HCl 2 gm/Sodium Chloride 500 ml @ 250 mls/hr 1X ONCE IV Last administered on 10/30/16 21:22; Start 10/30/16 at 20:45; Stop 10/30/16 at 22:44 ; Status DC Levofloxacin/ Dextrose 100 ml @ 100 mls/hr Q24H IV Last administered on 20:56; Start 10/30/16 at 20:45 Iohexol (Omnipaque 300 Mg/ml) 75 ml 1X ONCE IV Last administered on 10/30/16 21:00; Start 10/30/16 at 21:00; Stop 10/30/16 at 21:01; Status DC Info (Do NOT chart on this entry -- for MONITORING) 1 each PRN DAILY PRN MC SEE COMMENTS; Start 10/30/16 at 21:00; Stop 11/01/16 at 20:59 Ondansetron HCl (Zofran) 4 mg PRN Q8HRS PRN IV NAUSEA/VOMITING; Start 10/30/16 at 21:15; Stop 10/31/16 at 21:14; Status DC Morphine Sulfate 4 mg PRN Q2HR PRN IV SEVERE PAIN; Start 10/30/16 at 21:15; Stop 10/30/16 at 23:37; Status DC Sodium Chloride 1,000 ml @ 125 mls/hr Q8H IV Last administered on 10/30/16 22 :48; Start 10/30/16 at 21:11; Stop 10/31/16 at 21:10; Status DC Acetaminophen (Tylenol) 650 mg PRN Q4HRS PRN PO FEVER Last administered on 10/31 17:28; Start 10/30/16 at 21:15; Stop 10/31/16 at 21:14; Status DC Diphenhydramine HCl (Benadryl) 25 mg 1X ONCE IVP Last administered on 22:12; Start 10/30/16 at 22:30; Stop 10/30/16 at 22:31; Status DC Morphine Sulfate 2 mg PRN Q2HR PRN IV SEVERE PAIN Last administered on 22:59; Start 10/30/16 at 23:30 Oxycodone HCl (Roxicodone) 5 mg PRN Q6HRS PRN PO MOERATE PAIN; Start 10/30/16 at 23:30 Oxycodone HCl (Roxicodone) 10 mg PRN Q6HRS PRN PO SEVERE PAIN Last administered on 11/01/16 09:25; Start 10/30/16 at 23:45 Vancomycin HCl 1.25 gm/Sodium Chloride 250 ml @ 167 mls/hr Q8HRS IV Last administered on 11/01/16 06:32; Start 10/31/16 at 06:00 Vancomycin HCl 1 each 1X ONCE MC Last administered on 10/31/16 20:57; Start 10/31/16 at 21:30; Stop 10/31/16 at 21:31; Status DC Fentanyl Citrate (Fentanyl 2ml Vial) 25 mcg PRN Q5MIN PRN IV MILD PAIN; Start 10/31/16 at 13:30; Stop 11/01/16 at 13:29 Fentanyl Citrate (Fentanyl 2ml Vial) 50 mcg PRN Q5MIN PRN IV MODERATE PAIN Last administered on 10/31/16 17:24; Start 10/31/16 at 13:30; Stop 11/01/16 at 13:29 Morphine Sulfate 1 mg PRN Q10MIN PRN IV SEVERE PAIN; Start 10/31/16 at 13:30; Stop 11/01/16 at 13:29 Ringer's Solution 1,000 ml @ 30 mls/hr Q24H IV ; Start 10/31/16 at 13:26; Stop 11/01/16 at 01:25; Status DC Lidocaine HCl 2 ml PRN 1X PRN ID PRIOR TO IV START; Start 10/31/16 at 13:30; Stop 11/01/16 at 13:29 Hydromorphone HCl (Dilaudid) 0.5 mg PRN Q10MIN PRN IV SEV PAIN, Second choice; Start 10/31/16 at 13:30; Stop 11/01/16 at 13:29 Prochlorperazine Edisylate (Compazine) 5 mg PACU PRN PRN IV NAUSEA, MRX1; Start 10/31/16 at 13:30; Stop 11/01/16 at 13:29 Propofol 50 ml @ As Directed STK-MED ONCE IV ; Start 10/31/16 at 15:22; Stop at 15:23; Status DC Dexamethasone Sodium Phosphate (Decadron) 20 mg STK-MED ONCE .ROUTE ; Start at 15:22; Stop 10/31/16 at 15:23; Status DC Ondansetron HCl (Zofran) 4 mg STK-MED ONCE .ROUTE ; Start 10/31/16 at 15:23; Stop 10/31/16 at 15:24; Status DC Lidocaine HCl (Lidocaine Pf 2% Vial) 5 ml STK-MED ONCE .ROUTE ; Start 10/31/16 at 15:23; Stop 10/31/16 at 15:24; Status DC Fentanyl Citrate (Fentanyl 5ml Vial) 250 mcg STK-MED ONCE .ROUTE ; Start at 15:23; Stop 10/31/16 at 15:24; Status DC Bupivacaine HCl/ Epinephrine Bitart (Sensorcain-Mpf Epi 0.5%-1:[id number]) 30 ml STK -MED ONCE .ROUTE ; Start 10/31/16 at 16:23; Stop 10/31/16 at 16:24; Status DC Sodium Chloride (Normal Saline Flush) 3 ml QSHIFT PRN IV AFTER MEDS AND BLOOD DRAWS; Start 10/31/16 at 16:45 Ringer's Solution 1,000 ml @ 100 mls/hr Q10H IV Last administered on 03:58; Start 10/31/16 at 16:41 Acetaminophen/ Hydrocodone Bitart (Lortab 5/325) 1 tab PRN Q4HRS PRN PO MILD PAIN Last administered on 10/31/16 22:59; Start 10/31/16 at 16:45 Ketorolac Tromethamine (Toradol) 30 mg PRN Q6HRS PRN IV PAIN Last administered on 10/31/16 20:55; Start 10/31/16 at 16:45; Stop 11/05/16 at 16:44 Morphine Sulfate 1 mg PRN Q1HR PRN IV PAIN; Start 10/31/16 at 16:45 Senna/Docusate Sodium (Senna Plus) 1 tab BID PO Last administered on 11/01/16 09:25; Start 10/31/16 at 21:00 Vitals/I & O Vital Sign - Last 24 Hours 10/31/16 10/31/16 10/31/1610/31/17 13:54 15:00 15:35 16:36 Temp 100.5 102.6 98.8 100.5 102.6 98.8 Pulse 79 96 86 Resp 20 21 14 B/P (MAP) 123/73 (90) 128/74 128/81 Pulse Ox 96 94 95 O2 Delivery Room Air Room Air Room Air Simple Mask O2 Flow Rate 5 10/31/16 10/31/16 10/31/16 10/31/16 16:36 16:51 17:06 17:08 Pulse 86 90 Resp 18 18 18 B/P (MAP) 142/88 142/88 Pulse Ox 100 94 95 O2 Delivery Mask Simple Mask Room Air Room Air O2 Flow Rate 10 10 10/31/16 10/31/16 10/31/16 10/31/16 17:21 17:24 17:40 17:49 Temp 102.5 99.8 102.5 99.8 Pulse 92 101 Resp 18 18 18 B/P (MAP) 131/88 130/87 (101) Pulse Ox 92 95 96 O2 Delivery Room Air Room Air Nasal Cannula Room Air O2 Flow Rate 2.0 10/31/16 10/31/16 10/31/16 10/31/16 18:00 18:15 18:30 19:15 Temp 98.9 98.9 Pulse 91 91 94 98 Resp 18 B/P (MAP) 122/74 (90) 132/87 (102) 134/82 (99) 131/96 (108) Pulse Ox 94 92 97 95 O2 Delivery Room Air Room Air Room Air Room Air 10/31/16 10/31/16 10/31/16 10/31/16 20:20 20:56 20:56 21:10 Temp 98.0 98.0 Pulse 83 Resp 20 20 18 B/P (MAP) 115/86 (96) Pulse Ox 95 95 95 O2 Delivery Room Air Room Air Room Air Room Air 10/31/16 10/31/16 10/31/16 10/31/16 21:56 22:59 22:59 23:23 Temp 98.4 98.4 Pulse 95 Resp 20 20 20 18 B/P (MAP) 112/65 (81) Pulse Ox 95 95 95 95 O2 Delivery Room Air Room Air Room Air Room Air 10/31/16 10/31/16 11/01/16 11/01/16 23:29 23:59 03:14 07:00 Temp 97.8 97.8 97.8 97.8 Pulse 89 80 Resp 20 20 18 20 B/P (MAP) 110/66 (81) 123/81 (95) Pulse Ox 95 95 95 98 O2 Delivery Room Air Room Air Room Air Room Air 11/01/16 11/01/16 11/01/16 08:20 09:25 11:00 Temp 98.4 98.4 Pulse 73 Resp 18 20 B/P (MAP) 134/72 (92) Pulse Ox 96 O2 Delivery Room Air Room Air Room Air Intake and Output 10/31/16 10/31/16 11/01/16 15:00 23:00 07:00 Intake Total 1730 ml 1296 ml Output Total 950 ml 1155 ml 1150 ml Balance -950 ml 575 ml 146 ml KERVIN ESPINOSA MD November 01, 2016 12:09
[2016-11-01 15:00] VITALS: BP 129/73
[2016-11-01 19:16] VITALS: BP 126/76
[2016-11-01 22:26] VITALS: BP 123/71
[2016-11-02 03:27] VITALS: BP 124/80
[2016-11-02] MEDS: VANCOMYCIN 1.25 GM in IV NORMAL SALINE 250ML 250 ML IV SCH ×2 (06:46→14:00)
[2016-11-02 07:00] VITALS: BP 110/62
--- NOTE | 2016-11-02 09:04 | PDOC ---
SURGICAL PROGRESS NOTE Subjective some pain to wound feeling better Vital Signs Vital Signs Date Time Temp Pulse Resp B/P (MAP) Pulse Ox O2 Delivery O2 Flow Rate FiO2 11/02/16 07:30 Room Air 11/02/16 07:00 97.9 61 18 110/62 (78) 98 97.9 I&O Intake and Output 11/02/16 07:00 Intake Total 3447 ml Output Total 4625 ml Balance -1178 ml Intake Oral 660 ml IV Total 450 ml Other 2337 ml Output Urine Total 4625 ml General: Alert, Oriented X3, Cooperative, No acute distress Skin: Other (perirectal, packing in place, drain in place, some induration and erythema persist ) Labs Laboratory Tests Test 10/31/16 21:15 Vancomycin Level Trough 13.8 mcg/mL (10.0-20.0) Vancomycin Last Dose Date 10/31/16 Vancomycin Last Dose Time 1400 Problem List Problems Medical Problems: (1) Perirectal abscess Status: Acute Assessment/Plan s/p I&D continue abx, cultures pending will leave packing in place, plan to remove tomorrow,drain will stay in place at discharge 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
[2016-11-02] MEDS: SENNOSIDES/DOCUSATE 8.6/50MG TABLET. PO SCH (09:32)
[2016-11-02] MEDS: oxyCODONE IR 5 MG TABLET PO PRN (09:32)
[2016-11-02] MEDS ORDERED: DOXY100C2 PO (10:12)
[2016-11-02] MEDS ORDERED: AMOX1TAB61 PO (10:12)
[2016-11-02 11:00] VITALS: BP 114/81
[2016-11-02] MEDS: VANCOMYCIN PER PHARMACY MC PRN (13:17)
[2016-11-02] MEDS: HYDROcodone/APAP 5/325MG 1 TAB TABLET PO PRN (13:58)
[2016-11-02 15:00] VITALS: BP 119/81
--- NOTE | 2016-11-02 15:42 | PDOC3 ---
Discharge Summary Visit Information Date of Admission: October 30, 2016 Date of Discharge: November 02, 2016 Admitting Diagnosis: rectal pain Final Diagnosis 1. cellulitis and Abscess: I&D by surg 10/31, 2. Thrombocytopenia: mild, monitor. 3. Prophylaxis: lovenox post I&DProblems Medical Problems: (1) Perirectal abscess Status: Acute Brief Hospital Course Allergies Allergies Coded Allergies Type Severity Reaction Last Updated Verified No Known Drug Allergies 10/30/16 No Vital Signs Vital Signs Date Time Temp Pulse Resp B/P (MAP) Pulse Ox O2 Delivery O2 Flow Rate FiO2 11/02/16 15:00 98.3 74 18 119/81 (94) 97 Room Air 98.3 Lab Results Laboratory Tests Test 10/31/16 21:15 Vancomycin Level Trough 13.8 mcg/mL (10.0-20.0) Vancomycin Last Dose Date 10/31/16 Vancomycin Last Dose Time 1400 Brief Hospital Course Mr. Barraza is a 46 old admit for rectal pain, abcess, surg I+D 10/31 IV abx (lavaquin, flagyl, vanco) given cx reviewed with Dr. García, Ruth, Tabatha and augmentin, wound care consult, f/u wound outpatient Discharge Information Condition at Discharge: Improved Follow Up: Weeks Disposition/Orders: D/C to Home Scheduled Amoxicillin/Potassium Clav (Augmentin 875-125 Tablet), 1 TAB PO BID Doxycycline Hyclate (Doxycycline Hyclate), 1 CAP PO BID Patient Instructions Patient Instructions time > 30 min KERVIN ESPINOSA MD November 02, 2016 15:42
== END 2016-11-02 16:50 | disposition home or self-care (01) | DRG 854 ==
LOC: ER 20:41 → 4 NORTH 20:54
PROVIDERS: ADMIT Internal Medicine Hematology & Oncology; ATTEND Internal Medicine Hematology & Oncology
PROC: 0D9P0ZX Drainage of Rectum, Open Approach, Diagnostic (ICD-10-PCS; principal; 2016-10-31 14:30)
DX: A41.9 Sepsis, unspecified organism (principal); K61.1 Rectal abscess; L02.31 Cutaneous abscess of buttock; D69.6 Thrombocytopenia, unspecified; K62.89 Other specified diseases of anus and rectum
CPT/HCPCS: 36415; 74170; 80048; 80202; 85007; 85027; 87071; 87075; 87186; 87205; 96365; 96375; E0160; J1100; J1200; J1885; J1956; J2270; J2405; J2704; J3010; J3370; J3490; J7030; J7040; J7050; J7120; Q9967; 99285-25

== ENCOUNTER 2016-11-17 10:36 | Emergency (ER) | payer SELFPAY ==
[~2016-11-17] VITALS: Ht 165.1 cm; Wt 79.4 kg
[~2016-11-17 10:36] MED LIST: AMOX1TAB61 PO; DOXY100C2 PO
[2016-11-17 13:10] VITALS: BP 125/79
--- NOTE | 2016-11-17 17:21 | PHYS DOC ---
Past Medical History Past Medical History: No Pertinent History Past Surgical History: Other Additional Past Surgical Histo: ORAL SURG Alcohol Use: None Drug Use: None Adult General Chief Complaint Chief Complaint: ABSCESS HPI HPI The patient is a 46-year-old gentleman who presented with 4-day history of buttock pain and swelling in the left buttock. He relates that this is associated with worsening pain with bowel movements. Also had fevers and chills and a single episode of vomiting today. Denies any bleeding from this. Never had symptoms like this in the past. In the Emergency Room, a tract was noted perirectally with leakage. The specimen was sent for culture. Patient was seen by surgery who took him to the OR ended local incision and drainage and placed a [place] drain in the abscess. That was proximally 17 days ago patient is here for removal is Antionette drain. At this time is got no specific complaints no fevers no chills no increasing pain with rectal discharge or pain bowel movements. Review of Systems Review of Systems Constitutional: Denies fever or chills [] GI: Denies abdominal pain, nausea, vomiting, bloody stools or diarrhea [] Musculoskeletal: Denies back pain or joint pain [] Allergies Allergies Allergies Coded Allergies Type Severity Reaction Last Updated Verified No Known Drug Allergies 10/30/16 No Physical Exam Physical Exam Constitutional: Well developed, well nourished, no acute distress, non-toxic appearance. [] Skin: Warm, dry, no erythema, no rash. Skin of rectum is improved and erythema no soft tissue swelling there is no fluctuance or drainage. Antionette drain Back: No tenderness, no CVA tenderness. [] Current Patient Data Vital Signs Vital Signs Date Time Temp Pulse Resp B/P (MAP) Pulse Ox O2 Delivery O2 Flow Rate FiO2 11/17/16 13:10 98.4 68 14 98 Room Air 98.4 EKG EKG [] Radiology/Procedures Radiology/Procedures [] Course & Med Decision Making Course & Med Decision Making Pertinent Labs and Imaging studies reviewed. (See chart for details) his knee for abscess recheck and penicillin removal. No concomitant cellulitis is noted at this time doubt need for repeat I&D. Patient is comfortable without discomfort complaint fever or systemic pain. Patient will follow-up with the surgeon who did his work asked to return for any questions or concerns. Impression abscess reevaluation Disposition PCP follow-up wound care management. [] Dragon Disclaimer Dragon Disclaimer This electronic medical record was generated, in whole or in part, using a voice recognition dictation system. Departure Departure Impression: Primary Impression: Perirectal abscess Disposition: 01 HOME, SELF-CARE Condition: IMPROVED Referrals: NO PCP (PCP) Patient Instructions: Abscess, Perineal, Abscess, Care After Additional Instructions: This follow-up with your regular doctor in 12-24 hours for a repeat wound check please return for any new or increasing symptoms increased redness drainage or fevers. Or if you've any questions or concerns. These continue using her prescriptions as prescribed ALEX GONZALES MD November 17, 2016 17:21
== END 2016-11-17 14:35 | disposition home or self-care (01) ==
LOC: ER 10:36
DX: K61.1 Rectal abscess (principal); R11.10 Vomiting, unspecified
CPT/HCPCS: 99282